=== PATIENT | female | born 1980 | race Caucasian/White ===

== ENCOUNTER 2018-05-19 11:42 | Emergency (ER) | payer OTHER ==
[~2018-05-19] VITALS: Ht 172.7 cm; Wt 62.6 kg
[2018-05-19] MEDS ORDERED: PHENOBARBITAL100 MG PO (11:49)
[2018-05-19] MEDS ORDERED: SINGULAIR4 M1 PO (11:49)
== END 2018-05-19 15:53 | disposition home or self-care (01) ==
LOC: ER 11:42
DX: J45.901 Unspecified asthma with (acute) exacerbation (principal)

== ENCOUNTER 2022-03-12 14:49 | Outpatient (CLI) | payer OTHER ==
[~2022-03-12 14:49] MED LIST: PHENOBARBITAL100 MG PO; SINGULAIR4 M1 PO
== END 2022-03-12 15:40 | disposition home or self-care (01) ==
LOC: ASH CLINIC 14:49
PROVIDERS: ATTEND Emergency Medicine Hospice and Palliative Medicine
DX: U07.1 COVID-19 (principal)

== ENCOUNTER 2024-07-05 08:03 | Day surgery (SDC) | payer OTHER ==
[2024-06-27 11:38] VITALS: BP 97/60
[~2024-07-05] VITALS: Ht 172.7 cm; Wt 65.8 kg
[~2024-07-05 08:03] MED LIST changes: +ANUSOL-HC30 G2 TOP; +DAFLONEX-XL 11300 MG PO; +PROAIR RESPICL90 MCG IH
[2024-07-05] MEDS ORDERED: BUPIVACAINE HCL 30 ML VIAL IJ ONE (11:45)
[2024-07-05] MEDS ORDERED: POVIDONE-IODINE 118 ML BOTT TOP ONE (11:45)
[2024-07-05] MEDS ORDERED: CEFTRIAXONE SODIUM 2,000 MG VIAL IV ONE (11:45)
[2024-07-05] MEDS ORDERED: METRONIDAZOLE/SODIUM CHLORIDE 500 MG/100 ML PIGGYBACK IV ONE (11:45)
[2024-07-05] MEDS ORDERED: HEMOSTATIC MATRIX 1 KIT KIT TOP ONE (11:45)
[2024-07-05] MEDS ORDERED: DIBUCAINE 30 GM TUBE RECTAL ONE (11:45)
[2024-07-05] MEDS ORDERED: BUPIVACAINE LIPOSOME/PF 266 MG/20 ML VIAL IJ ONE (11:45)
[2024-07-05] MEDS ORDERED: PERCOCET 5-3251 EACH PO (13:29)
[2024-07-05] MEDS ORDERED: CELECOXIB200 MG PO (13:29)
[2024-07-05] MEDS ORDERED: INTESTINEX680 M1 PO (13:30)
[2024-07-05] MEDS ORDERED: MORPHINE SULFATE 4 MG/ML VIAL IV ONE (15:30)
== END 2024-07-05 16:40 | disposition home or self-care (01) ==
LOC: CIR.AMB 08:03
PROVIDERS: ATTEND Surgery
DX: K64.2 Third degree hemorrhoids (principal); K64.4 Residual hemorrhoidal skin tags; D64.9 Anemia, unspecified; G40.909 Epilepsy, unspecified, not intractable, without status epilepticus; J45.909 Unspecified asthma, uncomplicated